=== PATIENT | female | born 1970 | race African-American/Black ===

== ENCOUNTER → 2019-02-21 | Outpatient (CLI) | payer BC ==
--- NOTE | 2019-02-26 10:04 | RAD ---
DATE: 02/21/2019. EXAM: DIGITAL DIAGNOSTIC BILATERAL, BREAST RIGHT. HISTORY: Palpable focus right upper outer breast. The patient reports bruising at the site, now resolved. COMPARISON: None available. This is interpreted as a baseline study. This study was interpreted with the benefit of Computerized Aided Detection (CAD). FINDINGS: Breast Density: SCATTERED The breast parenchyma shows scattered fibroglandular densities. Breast parenchyma level B.. A skin marker is placed at the site of concern superolaterally on the right. Underlying this, there is an immediately subcutaneous density suggesting fat necrosis or an ecchymosis. On today's sonography at the 12:00 position 8 cm from the nipple, this reveals an immediately subcutaneous hyperechoic region with small cystic foci along its periphery. Altogether it measures 2.3 x 2.6 x 0.8 cm and has the architecture of a fat lobule. There is no clear underlying mass and fat necrosis is favored. There are mildly dilated ducts in the periareolar region without an intraductal mass. Laterally at the 9:00 position 6 cm from the nipple, another cluster of dilated ducts corresponds with a mammographic dilated duct. No enlarged veins or vascular malformation is seen. There is no intraductal mass. On the left, there is no suspicious finding. BI-RADS CATEGORY: 3 PROBABLY BENIGN FINDING(S)-SHORT INTERVAL FOLLOW-UP SUGGESTED. RECOMMENDED FOLLOW-UP: 1. Short interval sonographic follow-up in 1 month to confirm expected evolution of fat necrosis/ecchymosis at the right 12:00 position. 2. Focally dilated ducts in the right lateral breast can be followed with mammography and sonography in 6 months to establish the patient's baseline. PQRS compliance statement: Patient information was entered into a reminder system with a target due date 03/23/2019 for the next examination. Mammography is a sensitive method for finding small breast cancers, but it does not detect them all and is not a substitute for careful clinical examination. A negative mammogram does not negate a clinically suspicious finding and should not result in delay in biopsying a clinically suspicious abnormality. "Our facility is accredited by the [employer] Mammography Program." [facility]
== END | disposition home or self-care (01) ==
LOC: MAMMO 09:37
PROVIDERS: ATTEND Family Medicine
DX: N63.11 Unspecified lump in the right breast, upper outer quadrant (principal); N64.89 Other specified disorders of breast
CPT/HCPCS: 76641; 77066

== ENCOUNTER 2020-12-11 03:37 | Emergency (ER) | payer BC, OTHER ==
[~2020-12-11] VITALS: Ht 157.5 cm; Wt 92.0 kg
--- NOTE | 2020-12-11 04:32 | PHYS DOC ---
Past Medical History Additional Past Medical Histor: DENIES HX Past Surgical History: Hysterectomy Smoking Status: Never Smoker Alcohol Use: None General Adult EDM: Chief Complaint: MULTIPLE COMPLAINTS HPI: HPI: 50-year-old female presents after a fall at work where her sweater got caught in escalator and she fell to the ground. She complains of pain over her whole left side. She admits that she is able to walk, perform activities of daily living and go to work. She reports the pain got worse tonight while she was sleeping. She has not tried anything for the pain. The patient denies nausea, vomiting, fever, chills, chest pain, shortness of breath, abdominal pain, urinary symptoms, cough, or any other complaints. She does not take blood thinners and denies head trauma Review of Systems: Review of Systems: ROS is otherwise negative except for what was mentioned in the HPI Heart Score: C/O Chest Pain: No Allergies: Allergies: Allergies Coded Allergies Type Severity Reaction Last Updated Verified No Known Drug Allergies 12/11/20 No Physical Exam: PE: Constitutional: No acute distress, non-toxic appearance. HENT: Atraumatic, bilateral external ears normal, nose normal. Eyes: PERRLA, EOMI, conjunctiva normal, no discharge. Neck: Normal range of motion, supple, no stridor. Cardiovascular: Heart rate regular rhythm. 2+ radial pulses Lungs & Thorax: No respiratory distress, symmetrical expansion. Abdomen: Soft, no tenderness Skin: Warm, dry. Extremities: No tenderness, no cyanosis, ROM intact, no edema. Neurologic: Alert and oriented X 3, normal motor function, normal sensory function, no focal deficits noted. Non ataxic gait. GCS 15. Psychologic: Affect normal, judgment normal, mood normal. Current Patient Data: Vital Signs: Vital Signs Date Time Temp Pulse Resp B/P (MAP) Pulse Ox O2 Delivery O2 Flow Rate FiO2 12/11/20 04:12 104 18 202/86 (124) 99 Room Air 12/11/20 04:01 97.8 97.8 Course & Med Decision Making: Course & Med Decision Making Patient is driving home, she was given Toradol, hypertension likely related to her pain. Patient is comfortable with the plan for discharge and follow-up with work note. She was advised to follow-up for blood pressure. Departure Departure Impression: Primary Impression: Pain Disposition: 01 HOME / SELF CARE / HOMELESS Condition: STABLE Referrals: Vi LOZANO MD (PCP) Patient Instructions: Back Pain, Adult, [id number] Additional Instructions: You were seen in the emergency department for hypertension, or high blood pressure. You need to follow up with the medicine clinic or your primary care doctor for further evaluation and treatment of your blood pressure. You should return to the ED if you develop chest pain, shortness of breath, severe headache, or any other new or concerning symptoms. We started you on a low dose of blood pressure medication, but you may need more than one medication and should have a primary doctor that can further investigate your blood pressure i ssues. Losing some weight and improving your diet will be helpful in reducing your blood pressure as well. You were seen in the emergency department for a musculoskeletal problem that will likely get better over time. You may utilize something called the "RICE" protocol (Rest, Ice, Compresses, Elevation) to help alleviate your pain: ? Hold off on doing intense exercise that may make the pain worse. Sometimes gentle stretching can provide relief, but be careful to avoid further injury. It is important to perform gentle range of motion exercises to prevent stiff joints and chronic pain. ? Use ice packs over the affected area to help decrease your pain. Ice can work as a numbing agent over your painful area. For the first 24 hours, apply ice 2-4 times per day for a maximum 15-20 minutes each time. Ice should be in a plastic bag. ? You may use warm compresses to help improve blood flow and decrease swelling. Alternating with ice packs and warm compresses works well. ? You may elevate the affected area to help improve drainage and reduce swelling, which will also help your pain. ROBLES SINGH DO Dec 11, 2020 04:32
[2020-12-11 04:50] VITALS: BP 189/98
[2020-12-11] MEDS ORDERED: KETOROLAC 15 MG/ML VIAL. IM ONE (05:00)
== END 2020-12-11 04:53 | disposition home or self-care (01) ==
LOC: ER 03:37
DX: S70.11XA Contusion of right thigh, initial encounter (principal); M54.2 Cervicalgia; M25.512 Pain in left shoulder; M54.89 Other dorsalgia; Z90.710 Acquired absence of both cervix and uterus; W18.39XA Other fall on same level, initial encounter; Y93.89 Activity, other specified; Y92.69 Other specified industrial and construction area as the place of occurrence of the external cause; Y99.0 Civilian activity done for income or pay
CPT/HCPCS: 96372; 99283; J1885